=== PATIENT | male | born 1965 | race Caucasian/White ===

== ENCOUNTER → 2016-09-15 | Outpatient (CLI) | payer OTHER ==
[~2016-09-15] MED LIST: AMOXICILLIN 8751 TAB PO; CIPRO 500MG TA500 MG PO; COUMADIN 2MG2 MG/TAB PO; COUMADIN 6MG6 MG/TAB PO; FLAGYL500 MG PO; LOPRESSOR 225 MG/TAB PO; LOVENOX 100100 MG/ML SQ; NORCO 325 MG-51 TAB PO; PREVACID 15MG15 M1 PO; SENOKOT S 50 MG1 TAB PO
== END ==
LOC: COL.RAD 09:35
DX: K43.9 Ventral hernia without obstruction or gangrene (principal); K57.90 Diverticulosis of intestine, part unspecified, without perforation or abscess without bleeding; Z90.49 Acquired absence of other specified parts of digestive tract
CPT/HCPCS: Q9967

== ENCOUNTER → 2017-07-05 | Outpatient (CLI) | payer OTHER | LOC: COL.RAD 12:08 | DX: S46.911A Strain of unspecified muscle, fascia and tendon at shoulder and upper arm level, right arm, initial encounter (principal); S46.011A Strain of muscle(s) and tendon(s) of the rotator cuff of right shoulder, initial encounter; M75.81 Other shoulder lesions, right shoulder; M19.011 Primary osteoarthritis, right shoulder; M75.51 Bursitis of right shoulder ==

== ENCOUNTER 2017-07-06 13:00 | Outpatient (RCR) | payer OTHER | END 2017-08-25 11:35 | disposition home or self-care (01) | LOC: MKS.ESL.PT 13:00 | DX: M25.511 Pain in right shoulder (principal) ==

== ENCOUNTER 2017-12-15 09:00 | Outpatient (RCR) | payer OTHER | END 2018-01-18 15:36 | disposition home or self-care (01) | LOC: MKS.ESL.PT 09:00 | DX: Z47.89 Encounter for other orthopedic aftercare (principal) ==

== ENCOUNTER 2023-06-07 06:37 | Emergency (ER) | payer SELFPAY ==
[~2023-06-07] VITALS: Ht 177.8 cm; Wt 90.9 kg
[2023-06-07 06:40] VITALS: TEMP 97.7
[2023-06-07] MEDS ORDERED: LORazepam 2 MG/ML 1 ML VIAL IV ONE (06:45)
[2023-06-07] MEDS ORDERED: levETIRAcetam 100 ML IV ONE (06:45)
[2023-06-07 07:15] LABS: HEMOGLOBIN 12.5 g/dl (13.5-18.0); MEAN CELL VOLUME 90 fl (80.0-100.0); MEAN CORPUSCULAR HEMOGLOBIN 31 pg (27-31); MEAN CORPUSCULAR HGB CONC 34 g/dl (33.0-37.0); MEAN PLATELET VOLUME 8.7 fl (7.4-10.4); PLATELET COUNT 328 K/mm3 (130-400); RED BLOOD COUNT 4.06 M/mm3 (4.20-5.60)
[2023-06-07 07:28] LABS: HEMATOCRIT 36.5 % (42.0-52.0)
[2023-06-07 07:30] LABS: ALBUMIN 3.2 g/dL (3.5-5.0); BILIRUBIN,TOTAL 0.5 mg/dL (0.2-1.2); CALCIUM 8.4 mg/dL (8.4-10.2); CREATININE, serum 0.86 mg/dL (0.72-1.25); POTASSIUM 4.1 mEq/L (3.5-4.5); TOTAL PROTEIN 5.6 g/dl (6.2-8.1)
[2023-06-07 07:45] LABS: BAND 1 % (0-10); LYMPHOCYTE 8 % (20.0-51.0); METAMYELOCYTE 1 % (0-0); NEUTROPHILS 82 % (42.0-75.2); PLATELET ESTIMATE NORMAL (NORMAL)
[2023-06-07] MEDS ORDERED: NS 1,000 ML IV ONE (08:15)
[2023-06-07 10:53] VITALS: BP 117/78; PULSE 75
== END 2023-06-07 11:06 | disposition short-term general hospital (02) ==
LOC: COL.ER 06:37
PROVIDERS: Personal Emergency Response Attendant
DX: D32.0 Benign neoplasm of cerebral meninges (principal); Z98.890 Other specified postprocedural states
CPT/HCPCS: J1953; J2060; J7030